=== PATIENT | male | born 1965 | race Caucasian/White ===

== ENCOUNTER 2018-07-14 19:39 | Emergency (ER) | payer BC ==
[~2018-07-14] VITALS: Ht 165.1 cm; Wt 73.0 kg
[~2018-07-14 19:39] MED LIST: ATEN50TA PO; FLEC100T2 PO; POTA10CA42 PO; PRAV20TA57 PO; SULF-165 PO; VERA240C2 PO
[2018-07-14 20:50] LABS: CLARITY URINE CLOUDY (CLEAR); COLOR URINE DARK YELLOW (YELLOW); KETONES URINE TRACE (NEGATIVE); LEUKOCYTE ESTERASE URINE 2+ (NEGATIVE); NITRITE URINE NEGATIVE (NEGATIVE); OCCULT BLOOD URINE NEGATIVE (NEGATIVE); PH URINE 5.5 (4.5-8.0); PROTEIN URINE TRACE (NEGATIVE); SPECIFIC GRAVITY URINE 1.024 (1.005-1.030); UROBILINOGEN URINE 0.2 E.U./dL (0.2-1.0)
[2018-07-14] MEDS ORDERED: ACETAMINOPHEN 325MG TABLET PO STA (22:32)
[2018-07-14 23:31] LABS: CHLORIDE 102 mEq/L (98-107)
[2018-07-15 00:38] LABS: HEMATOCRIT. 44.1 % (42.0-52.0); HEMOGLOBIN. 15.2 g/dL (14.0-18.0); MEAN CORPUSCULAR HEMOGLOBIN 31.4 pg (28.0-32.0); MEAN CORPUSCULAR VOLUME 91.3 fL (80.0-94.0); MEAN PLATELET VOLUME 7.6 fl (7.4-10.4); PLATELET 179 x1000/uL (130-400); RED BLOOD CELL COUNT 4.83 mill/uL (4.7-6.1); RED CELL DISTRIBUTION WIDTH 13.4 % (11.6-14.6)
[2018-07-15] MEDS ORDERED: SODIUM POLYSTYRENE SULFONATE 15 G/60 ML BOT PO ONE (01:30)
[2018-07-15 03:35] VITALS: BP 118/76
[2018-07-15 04:50] LABS: ATYPICAL LYMPHOCYTES 1; PLATELET ESTIMATE NORMAL
== END 2018-07-15 03:36 | disposition home or self-care (01) ==
LOC: ER 19:39
DX: N39.0 Urinary tract infection, site not specified (principal); I11.9 Hypertensive heart disease without heart failure; Z95.0 Presence of cardiac pacemaker
CPT/HCPCS: 36415; 80053; 81003; 85025; 87086; 93005; 99285

== ENCOUNTER 2023-01-25 04:32 | Inpatient (IN) | payer BC ==
[~2023-01-25] VITALS: Ht 165.1 cm; Wt 72.6 kg
[~2023-01-25 04:32] MED LIST changes: -POTA10CA42 PO; +POTA10CA43 PO
[2023-01-25] MEDS ORDERED: ACETAMINOPHEN 325MG TABLET PO STA (05:34)
[2023-01-25] MEDS ORDERED: SODIUM CHLORIDE 0.9% 1000ML BAG (SEPSIS BOLUS) IV ONE (05:45)
[2023-01-25 07:27] LABS: BASOPHILS % 0.1 % (0.0-2.0); EOSINOPHILS % 0.1 % (0.0-5.0); HEMOGLOBIN. 13.9 g/dL (14.0-18.0); LYMPHOCYTES % 8.9 % (20.0-50.0); MEAN CORPUSCULAR HEMOGLOBIN 31.2 pg (28.0-32.0); MEAN CORPUSCULAR VOLUME 92.4 fL (80.0-94.0); MEAN PLATELET VOLUME 8.1 fl (7.4-10.4); MONOCYTES % 4.8 % (2.0-8.0); NEUTROPHILS % 86.1 % (40.0-76.0); PLATELET 190 x1000/uL (130-400); RED BLOOD CELL COUNT 4.44 mill/uL (4.7-6.1); RED CELL DISTRIBUTION WIDTH 13.2 % (11.6-14.6)
[2023-01-25 07:34] LABS: CHLORIDE 106 mEq/L (98-107); INR 1.1; PROTHROMBIN TIME 11.3 sec (9.6-11.0)
[2023-01-25] MEDS: ACETAMINOPHEN 325MG TABLET PO NR ×2 (07:40→18:27)
[2023-01-25] MEDS ORDERED: CEFTRIAXONE 1GM PREMIX 50 ML IV ONE (08:15)
[2023-01-25 08:24] LABS: CLARITY URINE TURBID (CLEAR); COLOR URINE DARK YELLOW (YELLOW); KETONES URINE 1+ (NEGATIVE); LEUKOCYTE ESTERASE URINE 3+ (NEGATIVE); NITRITE URINE NEGATIVE (NEGATIVE); OCCULT BLOOD URINE 2+ (NEGATIVE); PH URINE 5.5 (4.5-8.0); PROTEIN URINE 2+ (NEGATIVE); SPECIFIC GRAVITY URINE 1.029 (1.005-1.030)
[2023-01-25] MEDS ORDERED: KETOROLAC 15MG/ML VIAL IV PRN (11:15)
[2023-01-25] MEDS ORDERED: POTASSIUM CHLORIDE 20MEQ TABLET SR PO NR (11:15)
[2023-01-25] MEDS ORDERED: ONDANSETRON HCL 4MG/2ML INJ IV PRN (11:15)
[2023-01-25 11:36] VITALS: BP 110/81
[2023-01-25 15:43] LABS: *AMPHETAMINES SCREEN URINE NEGATIVE (NEGATIVE); *BARBITURATES SCREEN URINE NEGATIVE (NEGATIVE); *BENZODIAZEPINES SCREEN URINE NEGATIVE (NEGATIVE); *COCAINE SCREEN URINE NEGATIVE (NEGATIVE); CANNABINOID URINE SCREEN NEGATIVE (NEGATIVE); METHADONE URINE SCREEN NEGATIVE (NEGATIVE); OPIATES URINE SCREEN NEGATIVE (NEGATIVE); PHENCYCLIDINE URINE SCREEN NEGATIVE (NEGATIVE)
[2023-01-25 20:00] VITALS: BP 112/69
[2023-01-26] VITALS: BP 110/64
[2023-01-26 04:00] VITALS: BP 121/85
[2023-01-26 07:58] LABS: BASOPHILS % 0.2 % (0.0-2.0); EOSINOPHILS % 0.4 % (0.0-5.0); HEMATOCRIT. 40.2 % (42.0-52.0); HEMOGLOBIN. 13.8 g/dL (14.0-18.0); LYMPHOCYTES % 11.6 % (20.0-50.0); MEAN CORPUSCULAR HEMOGLOBIN 31.9 pg (28.0-32.0); MEAN CORPUSCULAR VOLUME 93.1 fL (80.0-94.0); MEAN PLATELET VOLUME 7.8 fl (7.4-10.4); MONOCYTES % 7.5 % (2.0-8.0); NEUTROPHILS % 80.3 % (40.0-76.0); PLATELET 173 x1000/uL (130-400); RED BLOOD CELL COUNT 4.31 mill/uL (4.7-6.1); RED CELL DISTRIBUTION WIDTH 13.7 % (11.6-14.6)
[2023-01-26 08:00] VITALS: BP 127/80
[2023-01-26] MEDS ORDERED: CEFTRIAXONE 1GM PREMIX 50 ML IV SCH ×2 (08:00→16:00)
[2023-01-26 08:50] LABS: CHLORIDE 106 mEq/L (98-107)
[2023-01-26] MEDS ORDERED: IOHEXOL-300 100 ML BOTTLE ONE (10:22)
[2023-01-26 12:00] VITALS: BP 129/80
[2023-01-26] MEDS ORDERED: ACETAMINOPHEN 325MG TABLET PO PRN (14:15)
[2023-01-26] MEDS: TAMSULOSIN HCL 0.4MG SR CAPSULE PO SCH (14:43)
[2023-01-26 16:00] VITALS: BP 117/76
[2023-01-26 20:00] VITALS: BP 106/76
[2023-01-26] MEDS: FLECAINIDE 50MG TABLET PO SCH (21:11)
[2023-01-27] VITALS: BP 110/72
[2023-01-27 04:00] VITALS: BP 118/72
[2023-01-27 07:30] LABS: BASOPHILS % 0.2 % (0.0-2.0); EOSINOPHILS % 1.4 % (0.0-5.0); HEMATOCRIT. 42.9 % (42.0-52.0); HEMOGLOBIN. 15.2 g/dL (14.0-18.0); LYMPHOCYTES % 17.5 % (20.0-50.0); MEAN CORPUSCULAR HEMOGLOBIN 32.8 pg (28.0-32.0); MEAN CORPUSCULAR VOLUME 92.9 fL (80.0-94.0); MEAN PLATELET VOLUME 7.9 fl (7.4-10.4); MONOCYTES % 12.7 % (2.0-8.0); NEUTROPHILS % 68.2 % (40.0-76.0); PLATELET 164 x1000/uL (130-400); RED BLOOD CELL COUNT 4.62 mill/uL (4.7-6.1); RED CELL DISTRIBUTION WIDTH 13.6 % (11.6-14.6)
[2023-01-27 08:00] VITALS: BP 117/84
[2023-01-27] MEDS ORDERED: LEVO-65 MT (08:32)
[2023-01-27] MEDS: TAMSULOSIN HCL 0.4MG SR CAPSULE PO SCH (08:53)
[2023-01-27] MEDS: FLECAINIDE 50MG TABLET PO SCH (08:55)
[2023-01-27] MEDS ORDERED: ATENOLOL 50 MG TABLET PO SCH (09:00)
[2023-01-27 12:00] VITALS: BP 108/78
[2023-01-27 14:12] VITALS: BP 108/78
[2023-01-27] MEDS ORDERED: CEFTRIAXONE 1,000 MG in DEXTROSE 5% WATER 50 ML IV SCH (16:00)
[2023-01-28] MEDS ORDERED: CEFTRIAXONE 1GM PREMIX 50 ML IV SCH (16:00)
== END 2023-01-27 14:59 | disposition home or self-care (01) | DRG 872 ==
LOC: ER 04:32 → 6EST 09:21 → EDBEDREQSVC 09:37 → EDBEDREQ 09:37
PROVIDERS: ADMIT Internal Medicine; ATTEND Internal Medicine
DX: A41.9 Sepsis, unspecified organism (principal); E87.6 Hypokalemia; E78.00 Pure hypercholesterolemia, unspecified; I11.9 Hypertensive heart disease without heart failure; N30.90 Cystitis, unspecified without hematuria; Z95.0 Presence of cardiac pacemaker
CPT/HCPCS: 36415; 71045; 74177; 80048; 80053; 80305; 81003; 83605; 84145; 84484; 85025; 93005; 99291; J0696; J7030; J7060; Q9967